=== PATIENT | female | born 1965 | race American Indian/Alaskan Native ===

== ENCOUNTER 2022-04-02 18:44 | Emergency (ER) | payer BC ==
[2022-04-02 19:41] LABS: CHLORIDE,CL 100 mmol/L (98-107); SODIUM,NA 138 mmol/L (136-145)
[2022-04-02 19:42] LABS: ANION GAP 13.7 mmol/L (5-15)
[2022-04-02] MEDS ORDERED: Take Home: LORazepam 0.5 MG Tab, 2 Tab Pack PO ONE (20:02)
== END 2022-04-02 20:15 | disposition home or self-care (01) ==
LOC: VM.ED 18:44
DX: R07.89 Other chest pain (principal); F41.9 Anxiety disorder, unspecified; J44.9 Chronic obstructive pulmonary disease, unspecified; Z88.5 Allergy status to narcotic agent; Z72.0 Tobacco use
CPT/HCPCS: 36415; 71046; 80053; 82550; 83615; 84484; 85025; 86140; 93010; 99284; 99285-25; A9270-GY

== ENCOUNTER 2022-05-31 19:35 | Emergency (ER) | payer BC ==
[2022-05-31] MEDS ORDERED: LORazepam 0.5 MG Tab PO ONE (19:57)
[2022-05-31] MEDS ORDERED: Albuterol HFA 18 Gm Inhaler INH STA (20:09)
[2022-05-31] MEDS ORDERED: Take Home: LORazepam 0.5 MG Tab, 2 Tab Pack PO ONE (20:31)
== END 2022-05-31 20:53 | disposition home or self-care (01) ==
LOC: VM.ED 19:35
DX: J45.901 Unspecified asthma with (acute) exacerbation (principal); F41.9 Anxiety disorder, unspecified; Z88.5 Allergy status to narcotic agent; Z20.822 Contact with and (suspected) exposure to COVID-19
CPT/HCPCS: 99284; A9270-GY; U0002

== ENCOUNTER 2022-06-01 23:15 | Emergency (ER) | payer BC ==
[2022-06-02] MEDS: Iopamidol 612 MG/ML 50 ML SDV IVPUSH ONE (00:22)
[2022-06-02] MEDS: LORazepam 0.5 MG Tab PO ONE (00:24)
== END 2022-06-02 00:35 | disposition home or self-care (01) ==
LOC: VM.ED 23:15
DX: T82.898A Other specified complication of vascular prosthetic devices, implants and grafts, initial encounter (principal); J45.909 Unspecified asthma, uncomplicated; Z88.5 Allergy status to narcotic agent; Z79.899 Other long term (current) drug therapy; Z87.891 Personal history of nicotine dependence
CPT/HCPCS: 71260; 99283; 99284; A9270-GY; Q9967